=== PATIENT | female | born 1960 | race Caucasian/White ===

== ENCOUNTER 2018-10-22 23:00 | Observation (INO) ==
--- NOTE | 2018-10-22 23:35 | Emergency Department Note ---
Disposition Clinical Impression: Bradycardia, Lightheaded Disposition: Admitted As Inpatient Condition: Fair Referrals: Feliz Bolivar DO [Primary Care Provider] - Forms: ED Satisfaction Letter General Adult HPI - General Chief complaint: ED Shortness of Breath/Dyspnea Stated complaint: dizziness/low heart rate Time Seen by Provider: 10/22/18 23:10 Source: patient Limitations: no limitations Nursing Notes Reviewed: Yes Vital Signs Reviewed: Yes - History of Present Illness HPI Narrative: Patient is a 58-year-old female with past medical history including hypertension, takotsubo cardiomyopathy, presenting with chief complaint of lightheadedness and low heart rate. The patient states she was recently diagnosed with a sliding hiatal hernia a couple of weeks ago. She is scheduled for surgery with a cardiothoracic surgeon in [place]. She states she needs cardiac clearance prior. Since yesterday, the patient complains of intermittent episodes of lightheadedness when she stands up and ambulates. She denies chest pain with these episodes. Today she states the episodes have been happening more frequently and intermittently at rest. She also complains of associated shortness of breath. Decreased appetite today. She checked her blood pressure which was elevated and not uncommon for her. However she states her heart rate was in the 30s. She states this has never happened before. She takes metoprolol for many years and has not had any dosage changes. She is presenting here for further evaluation. Pain Scale: 4 - Related Data Home Medications Medication Instructions Recorded Confirmed CloNIDine Patch [Catapres-Tts] 0.2 mg TD QWEEK 07/14/15 07/14/15 Duloxetine HCl [Cymbalta] 60 mg PO DAILY 07/14/15 07/14/15 Lisinopril [Zestril] 20 mg PO BID 07/14/15 07/14/15 Morphine Sulfate ER (24 HR) 60 mg PO TID 07/14/15 07/14/15 [Morphine Sulfate ER Caps] Oxycodone HCl/Acetaminophen 1 tab PO Q6H PRN 07/14/15 07/14/15 [Percocet 10-325 mg Tablet] Quetiapine Fumarate [Seroquel] 125 mg PO HS 07/14/15 07/14/15 Tizanidine HCl 4 mg PO BID 07/14/15 07/14/15 cloNIDine HCl [CloNIDine HCl] 0.1 mg PO BID PRN 07/14/15 07/14/15 Previous Rx's Medication Instructions Recorded Aspirin 81 mg PO DAILY #30 tab.chew 07/15/15 Metoprolol XL (24 HR) Succ [Toprol 50 mg PO DAILY #30 tab.er.24h 07/15/15 Xl] Allergies Allergy/AdvReac Type Severity Reaction Status Date / Time meloxicam [From Mobic] Allergy Difficulty Verified 03/06/16 21:20 Breathing promethazine [From Phenergan] Allergy Muscle Pain Verified 03/06/16 21:20 Past Medical History - Past Medical History Medical history: Reports: arthritis, diabetes, fibromyalgia, GERD, hypertension Surgical history: Reports: other (left knee arthroscopy 2010, rotator cuff repair 2005, carpal tunnel release , d and c , tubal ligation 1998, liver laceration and repair 1985, uterine ablation 2011, anterior and posterior colporrhaphy with fascial graft 2011) Psychiatric history: Reports: no psych history [employer] history: Reports: other - Social History Smoking Status: Never smoker Smokeless Tobacco Status: No Alcohol use: Reports: none Drug use: Reports: none Physical Exam - General Limitations: no limitations General appearance: alert, in no apparent distress - Head Head exam: atraumatic, normocephalic, normal inspection - Eye Eye exam: Present: normal appearance, PERRL, EOMI - ENT ENT exam: normal exam, mucous membranes moist - Neck Neck exam: Present: normal inspection, trachea midline - Chest Chest inspection: Present: normal inspection, symmetric chest wall rise - Respiratory Respiratory exam: Present: normal lung sounds bilaterally. Absent: respiratory distress, wheezes - Cardiovascular Cardiovascular exam: Present: normal rhythm, bradycardia, other (bilateral radial pulses equal) - Abdominal Exam Abdominal exam: Present: soft, Non-Tender. Absent: distention - Extremities Exam Extremities exam: Present: normal inspection, normal capillary refill. Absent: calf tenderness - Neurological Exam Neurological exam: Present: alert, oriented X3, CN II-XII intact - Psychiatric Psychiatric exam: Present: normal affect, normal mood - Skin Skin exam: Present: warm, dry, intact. Absent: diaphoresis, pallor Course Vital Signs Temperature 97.8 F 10/22/18 23:09 Pulse Rate 47 10/22/18 23:09 Respiratory Rate 15 10/22/18 23:09 Blood Pressure 161/92 10/22/18 23:09 O2 Sat by Pulse Oximetry 99 10/22/18 23:09 Temperature 97.8 F 10/22/18 23:09 Pulse Rate 52 10/23/18 00:17 Respiratory Rate 18 10/23/18 00:17 Blood Pressure 170/92 10/23/18 00:17 O2 Sat by Pulse Oximetry 99 10/23/18 00:17 Oxygen Delivery Oxygen Delivery Room Air Medical Decision Making - MDM Narrative Medical decision making narrative: EKG shows borderline first-degree AV block. Heart rate was 47. Upon evaluation, heart rate is mid 50s. H&H is asymptomatic at rest. I did have the patient stand and ambulate and she states she still feels lightheaded however it is not as bad as before. We will obtain CBC, BMP, magnesium, troponin, TSH. Anticipate admission. Patient is on a beta anshu however has not had any changes and has been on metoprolol for years. Anticipate the patient will be admitted for observation overnight on cardiac monitoring. 0030 Dr. Alexander, hospitalist was notified of admission. Magnesium and electrolytes are normal. Troponin <0.03. TSH is pending. Patient is asymptomatic at rest and heart rate remains in the 50's. - Medical Records Medical records reviewed: Yes I reviewed the patient's medical records. - Lab Data Lab results reviewed: Yes I reviewed the patient's lab results. Result diagrams: 10/22/18 23:35 Lab Results 10/22/18 Range/Units 23:35 Sodium 136 (136-145) mEq/L Potassium 4.0 (3.5-5.1) mEq/L Chloride 104 (98-107) mEq/L Carbon Dioxide 24 (23-29) mEq/L BUN 17 (6-20) mg/dL Creatinine 0.94 (0.60-1.20) mg/dL Est GFR ( Amer) > 60 (> 60) Est GFR (Non-Af Amer) > 60 (> 60) BUN/Creatinine Ratio 18 (6-26) Glucose 128 H (70-105) mg/dL Calculated Osmolality 285 (280-300) Calcium 9.1 (8.6-10.3) mg/dL Magnesium 1.8 (1.6-2.6) mg/dL Troponin I < 0.03 (< 0.04) ng/mL - Radiology Data Radiology results reviewed: Yes I reviewed the patient's radiology results. Chest X-Ray 10/23/18 00:02 IMPRESSION: No acute cardiopulmonary disease. There is a band of right basilar chronic atelectasis/fibrosis. Moderate-sized hiatal hernia. D/ / Shin Corona MD / Shin Corona MD Interpreting Provider: Shin Corona MD - EKG Data EKG #1 EKG attestation: Yes I reviewed and interpreted this EKG. EKG results narrative: EKG obtained at 2308 shows sinus bradycardia with heart rate 47. MA interval 206, QRS duration 103, QTC 400. No ST elevation or depression. Compared to old EKG which at that time shows sinus rhythm on 03/06/2016.
--- NOTE | 2018-10-23 00:27 | Emergency Department Note ---
Disposition Clinical Impression: Bradycardia Disposition: Admitted As Inpatient Condition: Fair Forms: ED Satisfaction Letter General Adult HPI - General Chief complaint: ED Shortness of Breath/Dyspnea Stated complaint: dizziness/low heart rate Time Seen by Provider: 10/22/18 23:10 Source: patient Limitations: no limitations - History of Present Illness Pain Scale: 0 - Related Data Home Medications Medication Instructions Recorded Confirmed CloNIDine Patch [Catapres-Tts] 0.2 mg TD QWEEK 07/14/15 07/14/15 Duloxetine HCl [Cymbalta] 60 mg PO DAILY 07/14/15 07/14/15 Lisinopril [Zestril] 20 mg PO BID 07/14/15 07/14/15 Morphine Sulfate ER (24 HR) 60 mg PO TID 07/14/15 07/14/15 [Morphine Sulfate ER Caps] Oxycodone HCl/Acetaminophen 1 tab PO Q6H PRN 07/14/15 07/14/15 [Percocet 10-325 mg Tablet] Quetiapine Fumarate [Seroquel] 125 mg PO HS 07/14/15 07/14/15 Tizanidine HCl 4 mg PO BID 07/14/15 07/14/15 cloNIDine HCl [CloNIDine HCl] 0.1 mg PO BID PRN 07/14/15 07/14/15 Previous Rx's Medication Instructions Recorded Aspirin 81 mg PO DAILY #30 tab.chew 07/15/15 Metoprolol XL (24 HR) Succ [Toprol 50 mg PO DAILY #30 tab.er.24h 07/15/15 Xl] Allergies Allergy/AdvReac Type Severity Reaction Status Date / Time meloxicam [From Mobic] Allergy Difficulty Verified 03/06/16 21:20 Breathing promethazine [From Phenergan] Allergy Muscle Pain Verified 03/06/16 21:20 Past Medical History - Past Medical History Medical history: Reports: arthritis, diabetes, fibromyalgia, GERD, hypertension Surgical history: Reports: other (left knee arthroscopy 2010, rotator cuff repair 2005, carpal tunnel release , d and c , tubal ligation 1998, liver laceration and repair 1985, uterine ablation 2011, anterior and posterior colporrhaphy with fascial graft 2011) Psychiatric history: Reports: no psych history 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 - Social History Smoking Status: Never smoker Smokeless Tobacco Status: No Alcohol use: Reports: none Drug use: Reports: none Physical Exam - General Limitations: no limitations General appearance: alert, in no apparent distress Course Vital Signs Temperature 97.8 F 10/22/18 23:09 Pulse Rate 47 10/22/18 23:09 Respiratory Rate 15 10/22/18 23:09 Blood Pressure 161/92 10/22/18 23:09 O2 Sat by Pulse Oximetry 99 10/22/18 23:09 Temperature 97.8 F 10/22/18 23:09 Pulse Rate 52 10/23/18 00:17 Respiratory Rate 18 10/23/18 00:17 Blood Pressure 170/92 10/23/18 00:17 O2 Sat by Pulse Oximetry 99 10/23/18 00:17 Oxygen Delivery Oxygen Delivery Room Air Attestation Statement - Attestation Attestation: I examined this patient and my medical decision-making was reviewed with the Resident Physician. I agree with the documented findings, disposition and treatment plan as described except to the extent set forth below. Patient had an episode of shortness of breath, lightheadedness and dizziness while she was watching television. 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 He was not syncopal or presyncopal. Presents emergency Department with a heart rate in the 50s and a similar blood pressure. EKG shows a borderline first-degree AV block with a MA interval just over 200 ms, otherwise unremarkable. She is on a beta anshu, has not had any recent dosage changes. Is making a normal amount of urine. Labs have been ordered. Pending at the time of dictation. I will call the hospitalist to arrange for overnight observation.
[2018-10-23 00:37] LABS: BUN/Creatinine Ratio 18 (6-26); Blood Urea Nitrogen 17 mg/dL (6-20); Calcium 9.1 mg/dL (8.6-10.3); Carbon Dioxide 24 mEq/L (23-29); Chloride 104 mEq/L (98-107); Glucose 128 mg/dL (70-105); Magnesium 1.8 mg/dL (1.6-2.6); Osmolality,Calculated 285 (280-300); Sodium 136 mEq/L (136-145); eGFR For Non-African Americans > 60 (> 60)
[2018-10-23 00:38] LABS: Troponin I < 0.03 ng/mL (< 0.04)
[2018-10-23 00:51] LABS: Thyroid Stimulating Hormone 2.846 mcIU/mL (0.340-5.600)
[2018-10-23] MEDS ORDERED: *HR* LORazepam 2 MG/ML VIAL IVP STA (02:55)
[2018-10-23] MEDS ORDERED: *HR* HYDROcodone/Acet 5/325 mg TABLET PO PRN (03:52)
[2018-10-23] MEDS ORDERED: Naloxone 0.4 MG/ML INJ IVP PRN (03:52)
[2018-10-23] MEDS ORDERED: *HR* Dextrose 50 % in Water (Syg) 50 ML SYRINGE IVP PRN (03:58)
[2018-10-23] MEDS ORDERED: D5% in Water 1,000 ML IVC PRN (03:58)
[2018-10-23] MEDS ORDERED: Dextrose Gel 15 GM/37.5 ML TUBE PO PRN ×2 (03:58)
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
[2018-10-23 05:37] LABS: Basophils # 0.1 K/mcL (0.0-0.2); Basophils % 0.8 %; Eosinophils # 0.1 K/mcL (0.0-0.6); Eosinophils % 1.5 %; Hematocrit 34.8 % (35.3-44.9); Hemoglobin 10.7 g/dL (11.5-15.4); Immature Granulocytes % 0.5 % (0-4); Lymphocytes % 21.4 %; Mean Corpuscular HGB Conc 30.7 g/dL (31.6-35.5); Mean Corpuscular Hemoglobin 23.5 pg (28.0-33.3); Mean Corpuscular Volume 76.3 fL (83.0-100.0); Mean Platelet Volume 10.4 fL (9.4-12.4); Monocytes # 0.7 K/mcL (0.0-1.3); Monocytes % 7.4 %; Neutrophils # 6.3 K/mcL (1.6-8.9); Platelet Count 269 K/mcL (140-400); Red Blood Count 4.56 M/mcL (3.82-4.97); Red Cell Distribution Width 15.9 % (11.5-14.5); Segmented Neutrophils % 68.4 %
[2018-10-23 05:51] LABS: BUN/Creatinine Ratio 16 (6-26); Blood Urea Nitrogen 14 mg/dL (6-20); Calcium 9.5 mg/dL (8.6-10.3); Carbon Dioxide 25 mEq/L (23-29); Chloride 107 mEq/L (98-107); Glucose 110 mg/dL (70-105); Osmolality,Calculated 287 (280-300); Potassium 3.9 mEq/L (3.5-5.1); Sodium 138 mEq/L (136-145); eGFR For Non-African Americans > 60 (> 60)
[2018-10-23] MEDS: Insulin LISPRO 300 UNITS/3 ML VIAL SQ SCH ×3 (05:58→17:05)
[2018-10-23] MEDS ORDERED: Pantoprazole 40 MG VIAL IVP SCH (06:30)
[2018-10-23] MEDS ORDERED: Lisinopril 20 MG TABLET PO PRN (08:00)
--- NOTE | 2018-10-23 08:38 | Event Note ---
Date of Encounter: 10/23/18 Time of Encounter: 08:35 INTERVAL HISTORY Ms. Lewis is a 58-year old female with a history of hypertension, takotsubo cardiomyopathy, and sliding hiatal hernia who was admitted to the hospital for management of symptomatic bradycardia with increased shortness of breath. At the time of evaluation is afternoon, patient reports that her symptoms have resolved, and improved quickly once her blood pressure was back under control. Patient also reports improvement in her nausea, and states that she is hungry at this time. She did have significant anxiety this morning, which was alleviated by hydroxyzine 25 mg. Patient voiced interest in continuing this medication PRN for alleviation of both nausea and anxiety. She denies any other complaints or concerns at this time. PHYSICAL EXAM GENERAL: Well-developed, well-nourished adult female in no acute distress. She is resting comfortably in bed and appears to be a reliable historian. HEENT: Atraumatic and normocephalic. CARDIOVASCULAR: Regular rate and rhythm. S1 and S2 present. No murmurs, gallops, or rubs. RESPIRATORY: Clear to auscultation bilaterally. Chest rises and falls symmetrically without accessory muscle use. GASTROINTESTINAL: Abdomen is soft, nontender, nondistended. EXTREMITIES: No clubbing, cyanosis, or edema. SKIN: Warm, dry, and intact. NEUROLOGIC: Alert and oriented x3. Patient is cooperative with exam and answers questions appropriately. No apparent focal deficits. PSYCHIATRIC: Appropriate mood and affect. ASSESSMENT AND PLAN (1) Symptomatic bradycardia Likely secondary to home medication of metoprolol. Prior to ED arrival, patient reportedly had heart rate of 35. Initial recorded heart rate is noted to be low at 47 bpm, the patient has improved throughout the day, with most recent heart rate of 50 bpm. Echocardiogram demonstrated LVEF 60%, with moderate left ventricular diastolic dysfunction. Patient was also noted to have mild mitral regurgitation, as well as borderline mild pulmonary hypertension. - Stop home medication of metoprolol, as well as PRN clonidine. - Start amlodipine 5 mg daily. Change lisinopril to 20mg BID scheduled, rather than PRN. Continue home medication of hydrochlorothiazide 25mg daily. - Continue telemetry monitoring. Appreciate cardiology recommendations regarding management of this problem. (2) Hypertension At the time of admission, patient was noted to have elevated blood pressure of 161/92. Review of vital signs since that time shows worsening of blood pressure to a maximum of 193/85; however, patient's blood pressure has improved throughout the day, with most recent reading of 132/67. Patient denies any chest pain, shortness of breath, dizziness, lightheadedness, nausea, or vomiting at this time. - Continue current medication regimen including lisinopril 20mg BID, amlodipine 5mg, and hydrochlorothiazide 25mg daily. - Continue hydralazine 10mg IVP Q6H PRN. (3) Nausea and vomiting Patient reports resolution of nausea and vomiting that were present at the time of admission. She states that she normally has the symptoms associated with episodes of severe hypertension. She states that she takes Zofran at home; however, this was held secondary to prolonged QTC observed on initial EKG. Patient was administered 1 dose of hydroxyzine this morning, which did improve her nausea. - Continue hydroxyzine 25mg TID PRN. - Start full liquid diet and advance as tolerated by patient. (4) GERD History of gastroesophageal reflux disease, with home medication of omeprazole 40mg BID. - Continue protonix 40mg IVP BID. - Avoid NSAIDs. (5) Sliding hiatal hernia Patient reports recently diagnosed sliding hiatal hernia, with plan for operative management in the near future. - Plan as above for GERD. (6) Anxiety Patient reports history of anxiety. She states that this is normally fairly well controlled, which allowed her to discontinue taking benzodiazepines on a regular basis. Patient reports significant anxiety last night, which she attributes in part to how poorly she was feeling at the time. She did receive 1 dose of Ativan last night. She reports that the dose of hydroxyzine she received this morning did help significantly with her feelings of anxiety, and she states that she would like to continue this medication on a PRN basis. - Orders placed for hydroxyzine 25mg TID PRN. (7) Anemia Patient noted to be anemic, with hemoglobin of 10.7. Suspect that this is likely chronic, as review of previous laboratory results, though limited, shows similar hemoglobin levels. Patient states that she has not had workup for this problem in the past. - Continue monitoring trend daily CBC. - Laboratory studies pending, including iron profile and ferritin. (8) Diabetes mellitus History of type 2 diabetes mellitus, with home medication of metformin 500 mg BID. - ADA diet when tolerated by patient. - Accu-Cheks and low-dose corrective SSI Q6H. (9) DVT prophylaxis - Heparin 5000units SQ Q12H.
[2018-10-23] MEDS: amLODIPine 5 MG TABLET PO SCH (11:59)
[2018-10-23] MEDS: Lisinopril 20 MG TABLET PO SCH ×2 (12:00→22:32)
[2018-10-23] MEDS ORDERED: hydrOXYzine pamoate 25 MG CAPSULE PO PRN (13:43)
--- NOTE | 2018-10-23 13:45 | Cardiology Consult Note ---
<Le Velasco - Last Filed: 10/23/18 13:59> Date of Encounter: 10/23/18 Time of Encounter: 13:32 Assessment and Plan (1) Bradycardia Current Visit: Yes Status: Acute Presents after episode of bradycardia, reported to be 32-38 BMP at home. HR avg overnight was 69 BPM Suspect that this is secondary to how she is taking her medications and fluctuations in blood pressure- she takes metoprolol daily, lisinopril when she feels like her blood pressure is elevated and clonidine as a further backup. Metoprolol has been held and HR has improved- she is no longer feeling lightheaded, she denies chest pain, syncope, continued shortness of breath Will hold metoprolol until further evaluation by her outpatient PCP Will continue lisinopril 20 mg BID scheduled, amlodipine 5 mg qd and HCTZ 25 mg qd (2) Hypertension Current Visit: No Status: Chronic Patient has a history of uncontrolled, fluctuating HTN Takes metoprolol daily, lisinopril PRN and clondine PRN as backup Suspect that her medication schedule is causing reflex tachy and bradycardia and labile blood pressures Will hold metoprolol Will discontinue clonidine Continue amlodipine, lisinopril and HCTZ as scheduled, daily medications Continue to monitor Qualifiers: Hypertension type: essential hypertension Qualified Code(s): I10 - Essential (primary) hypertension (3) Diabetes mellitus Current Visit: Yes Status: Acute History of DM type 2 Continue sliding scale insulin Should be taking lisinopril daily instead of PRN for renal protection as well as HTN management Qualifiers: Diabetes mellitus type: type 2 Diabetes mellitus complication status: without complication Qualified Code(s): E11.9 - Type 2 diabetes mellitus without complications (4) Sliding hiatal hernia Current Visit: Yes Status: Acute History of hiatal hernia Surgical management planned outpatient (5) GERD (gastroesophageal reflux disease) Current Visit: No Status: Chronic History of GERD Continue protonix Qualifiers: Esophagitis presence: esophagitis presence not specified Qualified Code(s): K21.9 - Gastro-esophageal reflux disease without esophagitis (6) DVT prophylaxis Current Visit: No Status: Acute SCDs Discussion w patient/family: The assessment and plan as outlined above was discussed with the patient and/or family members who expressed understanding and agreement. All questions were answered. Thank you for involving us in the care of your patient. Please call with any questions. History of Present Illness Consult date: 10/23/18 Consult reason: Bradycardia Chief complaint: Bradycardia History of present illness: Ms. Lewis is a 58 year old female presenting with bradycardia and dyspnea. PMH HTN, takotsubo cardiomyopathy 3 years ago with EF of 25%, DM type 2, GERD, sliding hiatal hernia with surgical management planned outpatient. She states that she has feeling a bit lightheaded 2 days ago, however it resolved. Yesterday she was sitting on her couch at rest when she began to feel lightheaded again, she took her BP and it was elevated to 180's/90's and checked her pulse which was 32-38 BPM. She states that she began to panic and became short of breath which resolved after she used her 's oxygen. She states that she has had a difficult time with fluctuating blood pressure. She states that she takes her metoprolol daily, uses lisinopril PRN as a "back up" and r lynette needs her clonidine as a back up. She admits to nausea and vomiting when her blood pressure is elevated, some shortness of breath during episode yesterday and occasional lightheadedness when she rises from a seated position. She denies syncope, vision or hearing changes, dysphagia, chest pain, palpitations, orthopnea, PND, claudication, shortness of breath, cough, wheezing, pleuritic pain, abdominal pain, diarrhea, constipation, melena, hematochezia, dysuria, hematuria, calf pain, edema. Past Med Surg Social Fam HX - Past Medical History Medical history: arthritis, diabetes, fibromyalgia, GERD, hypertension Psychiatric history: no psych history - Past Surgical History Surgical History: other (left knee arthroscopy 2010, rotator cuff repair 2005, carpal tunnel release , d and c , tubal ligation 1998, liver laceration and repair 1985, uterine ablation 2011, anterior and posterior colporrhaphy with fascial graft 2011) Additional surgical history: lacerated liver repair. left rotator cuff. bilat carpal tunnel. uterine ablation. knee scopes - Social History Smoking Status: Never smoker Smokeless Tobacco Status: No Alcohol use: rarely Drug use: none - Family History Mother Adopted: No Family Member Ethnicity: Non- Living Status: Still Living Hx Family Cardiac Disorders: Yes (HTN) Hx Family Respiratory Disorders: No Hx Family Cancer: No Hx Family GI Disorders: No Hx Family Endocrine Disorder: No Hx Family Musculoskeletal Disorders: Yes (Arthritis) Father Adopted: No Living Status: Cause of : P.E. Hx Family Cardiac Disorders: No Hx Family Cancer: No Hx Family Endocrine Disorder: No Medications and Allergies Lisinopril [Zestril] 20 mg PO BID PRN 07/14/15 [History] Oxycodone HCl/Acetaminophen [Percocet 10-325 mg Tablet] 1 tab PO Q6H PRN 07/14/15 [History] Quetiapine Fumarate [Seroquel] 125 mg PO HS 07/14/15 [History] Tizanidine HCl 12 mg PO TID 07/14/15 [History] cloNIDine HCl [CloNIDine HCl] 0.1 mg PO BID PRN 07/14/15 [History] Aspirin 81 mg PO DAILY #30 tab.chew 07/15/15 [Rx] Metoprolol XL (24 HR) Succ [Toprol Xl] 100 mg PO DAILY 10/23/18 [History] Omeprazole [PriLOSEC] 40 mg PO BID 10/23/18 [History] metFORMIN [Glucophage] 500 mg PO BIDWM 10/23/18 [History] Allergy/AdvReac Type Severity Reaction Status Date / Time meloxicam [From Mobic] Allergy Difficulty Verified 03/06/16 21:20 Breathing promethazine [From Phenergan] Allergy Muscle Pain Verified 03/06/16 21:20 All Systems Review: The remainder of the systems were reviewed and are negative - Constitutional Constitutional: no chills, no fever(s) - EENT Eyes: no loss of vision Nose, mouth and throat: no dysphagia - Cardiovascular Cardiovascular: lightheadedness, no chest pain at rest, no chest pain with ex ertion, no claudication, no dyspnea at rest, no dyspnea on exertion, no irregular heart rhythm, no leg edema, no orthopnea, no palpitations, no paroxysmal nocturnal dyspnea, no syncope - Respiratory Respiratory: no cough, no dyspnea - Gastrointestinal Gastrointestinal: nausea, no abdominal pain, no constipation, no hematochezia, no melena - Genitourinary Genitourinary: no dysuria, no hematuria - Musculoskeletal Musculoskeletal: no arthralgias, no myalgias - Integumentary Integumentary: no erythema - Neurological Neurological: dizziness, numbness, tingling, no focal weakness, no syncope - Psychiatric Psychiatric: no anxiety, no depression - Hematological/Lymphatic Hematologic/Lymphatic: no easy bleeding, no easy bruising Physical Examination Vital Signs, Last 4 Hours Temp Pulse BP Pulse Ox 10/23/18 11:20 97.9 F 58 122/83 99 10/23/18 09:34 166/75 General: Conversant, No Apparent Distress HEENT: Atraumatic, Normocephaly, Mucus Membranes Moist Neck: No JVD, Normal carotid pulses Cardiac: Reg Rate and Rhythm, Normal S1 and S2, No Murmur Lungs: Normal Breath Sounds, No Wheeze, Rales, Rhonchi Neuro: Alert and responsive, No focal deficits noted Abdomen: Soft, Non-Tender Skin: No rashes noted on visualized skin Musculoskeletal: No Chest Wall Tenderness Extremities: No Clubbing, No Cyanosis, No Edema, Normal Pulses Results 10/23/18 04:59 10/23/18 04:59 Lab Results 10/22/18 10/23/18 10/23/18 23:35 04:59 04:59 WBC 9.2 Hgb 10.7 L Hct 34.8 L Plt Count 269 Sodium 136 138 Potassium 4.0 3.9 Chloride 104 107 Carbon Dioxide 24 25 BUN 17 14 Creatinine 0.94 0.88 Glucose 128 H 110 H Calcium 9.1 9.5 Magnesium 1.8 Troponin I < 0.03 TSH 2.846 Consult Discharge Plan - Plan Referrals: Feliz Bolivar, [Primary Care Provider] - <Delicia Powers - Last Filed: 10/23/18 14:43> Date of Encounter: 10/23/18 - Attending Attestation Patient was seen and evaluated independently by me. Findings, assessment and p coleen were discussed at length with patient, questions answered. Agree with nurse practitioner's/resident's documentation. Addition as follows, 58yoCF ho Takotsubo CMP 2016 with recovered LVEF, uncontrolled HTN, DM2. P/w dizziness with home SBP 170s and HR 35. Symptoms resolved after admission with [facility] and holding BB. Tele HR 50s-70s. CTA, RR, no LE edema. ECG S francheska 47. TTE EF 60%, RV, mod DD, RV nl, mild MR, RVSP 35 borderline PH. Suboptimal home BP med regimen (metoprolol daily with florin prn and clonidine prn) A: Sinus francheska, etiology hypertension reflex response vs BB induced Hypertensive urgency Ho Takotsubo CMP 3 yrs ago P: ACEi, HCTZ, amlodipine hold BB for now, f/u Cardiology clinic Delicia Powers MD, PhD Assessment and Plan Discussion w patient/family: The assessment and plan as outlined above was discussed with the patient and/or family members who expressed understanding and agreement. All questions were answered. Thank you for involving us in the care of your patient. Please call with any questions. History of Present Illness History of present illness: Ms. Lewis is a 58 year old female All Systems Review: The remainder of the systems were reviewed and are negative Physical Examination Vital Signs, Last 4 Hours Temp Pulse BP Pulse Ox 10/23/18 11:20 97.9 F 58 122/83 99 Results 10/23/18 04:59 10/23/18 04:59 Lab Results 10/22/18 10/23/18 10/23/18 23:35 04:59 04:59 WBC 9.2 Hgb 10.7 L Hct 34.8 L Plt Count 269 Sodium 136 138 Potassium 4.0 3.9 Chloride 104 107 Carbon Dioxide 24 25 BUN 17 14 Creatinine 0.94 0.88 Glucose 128 H 110 H Calcium 9.1 9.5 Magnesium 1.8 Troponin I < 0.03 TSH 2.846
[2018-10-23] MEDS: *HR* Heparin 5,000 UNIT/ML VIAL SQ SCH (16:59)
[2018-10-23] MEDS: Pantoprazole 40 MG VIAL IVP SCH (17:01)
[2018-10-24] MEDS: Insulin LISPRO 300 UNITS/3 ML VIAL SQ SCH ×3 (00:27→12:13)
[2018-10-24 05:18] LABS: Basophils # 0.1 K/mcL (0.0-0.2); Basophils % 1.1 %; Eosinophils # 0.2 K/mcL (0.0-0.6); Eosinophils % 2.6 %; Hematocrit 34.3 % (35.3-44.9); Hemoglobin 10.3 g/dL (11.5-15.4); Immature Granulocytes % 0.5 % (0-4); Lymphocytes # 2.1 K/mcL (0.6-4.6); Lymphocytes % 32.6 %; Mean Corpuscular Hemoglobin 23.1 pg (28.0-33.3); Mean Corpuscular Volume 77.1 fL (83.0-100.0); Mean Platelet Volume 11.2 fL (9.4-12.4); Monocytes # 0.6 K/mcL (0.0-1.3); Neutrophils # 3.5 K/mcL (1.6-8.9); Platelet Count 272 K/mcL (140-400); Red Blood Count 4.45 M/mcL (3.82-4.97); Red Cell Distribution Width 16.3 % (11.5-14.5); Segmented Neutrophils % 54.2 %
[2018-10-24 05:33] LABS: BUN/Creatinine Ratio 12 (6-26); Blood Urea Nitrogen 13 mg/dL (6-20); Calcium 9.1 mg/dL (8.6-10.3); Carbon Dioxide 23 mEq/L (23-29); Chloride 107 mEq/L (98-107); Glucose 167 mg/dL (70-105); Osmolality,Calculated 292 (280-300); Potassium 3.4 mEq/L (3.5-5.1); Sodium 139 mEq/L (136-145); eGFR For Non-African Americans 53 (> 60)
[2018-10-24 05:39] LABS: % Iron Saturation 6 % (15-50); Iron 31 mcg/dL (50-170); Transferrin 362 mg/dL (203-362)
[2018-10-24 05:51] LABS: Ferritin < 8 ng/mL (10-120)
[2018-10-24] MEDS: *HR* Heparin 5,000 UNIT/ML VIAL SQ SCH (06:14)
[2018-10-24 06:40] VITALS: BP 122/71
[2018-10-24] MEDS: Pantoprazole 40 MG VIAL IVP SCH (08:48)
[2018-10-24] MEDS: Lisinopril 20 MG TABLET PO SCH (08:49)
[2018-10-24] MEDS: amLODIPine 5 MG TABLET PO SCH (08:49)
[2018-10-24] MEDS ORDERED: hydroCHLOROthiazide 25 MG TABLET PO SCH (09:00)
--- NOTE | 2018-10-24 11:57 | Discharge Summary ---
<Sissy Osborn N - Last Filed: 10/24/18 12:26> - NOTES TO OUTPATIENT PROVIDER Notes to Outpatient Provider: Patient was admitted for MsKeyshawn symptomatic bradycardia. Several medication adjustments were made during admission, and prior medications of hydrochlorothiazide, metoprolol, and clonidine were stopped. PRN lisinopril was discontinued; scheduled BID dosing started. Patient was also started on amlodipine 5 mg daily. Patient was noted to be anemic, with low iron profile; prescription for oral iron provided at time of discharge. Patient is to have repeat BMP in 1 week, with PCP follow-up for results and ongoing management. Date of Encounter: 10/24/18 Time of Encounter: 11:57 - Discharge Diagnosis (1) Hypertension Priority: Secondary Status: Chronic Qualifiers: Hypertension type: essential hypertension Qualified Code(s): I10 - Essential (primary) hypertension (2) GERD (gastroesophageal reflux disease) Priority: Secondary Status: Chronic Qualifiers: Esophagitis presence: esophagitis presence not specified Qualified Code(s): K21.9 - Gastro-esophageal reflux disease without esophagitis (3) Sliding hiatal hernia Priority: Secondary Status: Acute (4) Diabetes mellitus Priority: Secondary Status: Acute Qualifiers: Diabetes mellitus type: type 2 Diabetes mellitus complication status: without complication Qualified Code(s): E11.9 - Type 2 diabetes mellitus without complications (5) Symptomatic bradycardia Priority: Primary Status: Acute (6) Nausea & vomiting Priority: Secondary Status: Acute Qualifiers: Vomiting type: unspecified Vomiting Intractability: unspecified Qualified Code(s): R11.2 - Nausea with vomiting, unspecified (7) Anemia Priority: Secondary Status: Acute Qualifiers: Anemia type: unspecified type Qualified Code(s): D64.9 - Anemia, unspecified Hospital course: Ms. Lewis is a 58 year old female with a history of hypertension, takotsubo cradiomyopathy and recently diagnosed with sliding hernia who presented to the ED complaining of heart rate of 35 at home, shortness of breath, and lightheadedness during ambulation. Patient also voiced significant nausea, epigastric pain, and vomiting secondary to sliding hiatal hernia. Initial heart rate obtained in the ED was notably decreased at 47 bpm. Home medication of metoprolol was held and patient was put on continuous cardiac monitoring. Echocardiogram was performed, which demonstrated LVEF 60%, moderate left ventricular diastolic dysfunction, normal right ventricular structure and function, mild mitral regurgitation, and borderline mild pulmonary hypertension. Review of home medication regimen significant for regular use of metoprolol, with lisinopril and clonidine PRN for management of symptomatic hypertension. Per review of cardiology note, patient's uncontrolled, fluctuating hypertension is likely exacerbated by her regular medication schedule causing reflex tachycardia/bradycardia and labile blood pressures. Recommendations for medication adjustment were as follows: Continue lisinopril 20 mg BID, amlodipine 5 mg daily, and hydrochlorothiazide 25 mg daily; discontinue use of metoprolol and clonidine until further evaluation and follow-up with outpatient PCP. Patient did have resolution of shortness of breath, and lightheadedness once appropriate blood pressure was achieved. On day of discharge, patient's vital signs were reviewed, prompting discontinuation of hydrochlorothiazide due to intermittent borderline hypotension, with systolic pressure in the 90s. Patient was instructed to obtain daily blood pressure measurements every morning. She is also instructed to have repeat metabolic panel performed in 1 week. Initial laboratory workup did reveal anemia, with hemoglobin <11.0. Anemia panels were obtained, which showed low iron of 31, 6% saturation, normal transferrin, and ferritin <8.Patient was provided with prescription for oral iron supplementation. On day of discharge, patient reported complete resolution of symptoms, and voiced understanding of her new medication regimen. - Time Spent with Patient Total time spent providing and/or coordinating discharge services: - Discharge Medications Prescriptions: New Ferrous Sulfate 325 mg PO BIDWM #60 tablet amLODIPine [Norvasc] 5 mg PO DAILY #30 tablet Lisinopril [Zestril] 20 mg PO BID #60 tablet Continued Tizanidine HCl 12 mg PO TID Quetiapine Fumarate [Seroquel] 100 mg PO HS Aspirin 81 mg PO DAILY #30 tab.chew metFORMIN [Glucophage] 500 mg PO BIDWM Omeprazole [PriLOSEC] 40 mg PO BID Furosemide [Lasix] 40 mg PO DAILY PRN PRN Reason: Hypertension OxyCODONE/APAP 10/325 [Percocet 10/325 MG] 1 tab PO Q4H PRN PRN Reason: Pain Potassium Chloride [K-Tab ER] 20 meq PO DAILY PRN PRN Reason: Hypertension Discontinued Lisinopril [Zestril] 20 mg PO BID PRN PRN Reason: Hypertension cloNIDine HCl [CloNIDine HCl] 0.1 mg PO BID PRN PRN Reason: Hypertension Metoprolol XL (24 HR) Succ [Toprol Xl] 100 mg PO DAILY Home Medications: Quetiapine Fumarate [Seroquel] 100 mg PO HS 07/14/15 [History] Tizanidine HCl 12 mg PO TID 07/14/15 [History] Aspirin 81 mg PO DAILY #30 tab.chew 07/15/15 [Rx] Furosemide [Lasix] 40 mg PO DAILY PRN 10/23/18 [History] Omeprazole [PriLOSEC] 40 mg PO BID 10/23/18 [History] OxyCODONE/APAP 10/325 [Percocet 10/325 MG] 1 tab PO Q4H PRN 10/23/18 [History] Potassium Chloride [K-Tab ER] 20 meq PO DAILY PRN 10/23/18 [History] metFORMIN [Glucophage] 500 mg PO BIDWM 10/23/18 [History] Ferrous Sulfate 325 mg PO BIDWM #60 tablet 10/24/18 [Rx] Lisinopril [Zestril] 20 mg PO BID #60 tablet 10/24/18 [Rx] amLODIPine [Norvasc] 5 mg PO DAILY #30 tablet 10/24/18 [Rx] Allergies/Adverse Reactions: Allergy/AdvReac Type Severity Reaction Status Date / Time meloxicam [From Mobic] Allergy Difficulty Verified 10/23/18 18:07 Breathing promethazine [From Phenergan] Allergy Muscle Pain Verified 10/23/18 18:07 Date of admission: 10/23/18 00:55 Primary care physician: Feliz Bolivar Consults: 10/23/18 03:56 Consult to Cardiology [CONS] Routine Comment: Consulting Provider: [facility] Reason for Consult: symptomatic bradycardia, no new changes to medications Call Completed: No Discharging clinician: Sissy Osborn Anticipated date of discharge: 10/24/18 - Constitutional Vitals: Temp Pulse Resp BP Pulse Ox 98.1 F 56 16 122/71 96 10/24/18 06:39 10/24/18 06:39 10/24/18 06:39 10/24/18 06:39 10/24/18 06:39 Exam: GENERAL: Well-developed, well-nourished adult female lying in bed in no acute distress. HEENT: Atraumatic and normocephalic. CARDIOVASCULAR: Regular rate and rhythm. S1 and S2 present. No murmurs, gallops, or rubs. RESPIRATORY: Clear to auscultation bilaterally. Chest rises and falls symmetrically without accessory muscle use. GASTROINTESTINAL: Abdomen is soft, nontender, nondistended. EXTREMITIES: No clubbing, cyanosis, or edema. SKIN: Warm, dry, and intact. NEUROLOGIC: Alert and oriented x3. Patient is cooperative with exam and answers questions appropriately. No apparent focal deficits. PSYCHIATRIC: Appropriate mood and affect. - Patient Status Disposition: Home, Self-Care Condition: Fair Functional capacity at discharge: independent ambulation Overall status at discharge: patient is progressing back to baseline - Ambulatory Orders Ambulatory Orders: Basic Metabolic Panel [CHEM] Time Frame: 1 Week, Location: Determined By Patient - Discharge Instructions Instructions: Iron Supplements (By mouth), Lisinopril (By mouth), Amlodipine (By mouth), Vertigo (DC), Bradycardia (DC) Follow Up With: [facility] [Provider Group] (Office will call with date and time of appointment. ) Feliz Bolivar DO [Primary Care Provider] - (call and make a follow up appointment due to the office being closed for the weekend. Recommend follow-up within 1 week.) Additional Instructions: Follow up with her primary care provider in 3-5 days for reevaluation. Follow up with outpatient cardiology clinic as scheduled. Several medication changes were made during your hospital admission. - Stop taking metoprolol, hydrochlorothiazide, and clonidine. - Stop taking lisinopril PRN; instead, continue taking 20mg twice a day. - Take the following new medications: amlodipine 5mg daily and ferrous sulfate 325mg twice a day with meals. - Continue taking your remaining home medications as previously directed. Check your blood pressure at home every morning. Have repeat metabolic panel drawn in 1 week. Return to the emergency department if you have recurrent bradycardia, dizziness, lightheadedness, syncope, chest pain, shortness of breath, palpitations, or if any new concerns arise. - Diet and Activity Activity: increase activity as tolerated Diet: diabetic diet <Miguelito Gonzalez - Last Filed: 10/24/18 13:37> Date of Encounter: 10/24/18 Time of Encounter: 09:15 - Discharge Diagnosis (1) Hypertension Status: Chronic Qualifiers: Hypertension type: essential hypertension Qualified Code(s): I10 - Essential (primary) hypertension (2) GERD (gastroesophageal reflux disease) Status: Chronic Qualifiers: Esophagitis presence: esophagitis presence not specified Qualified Code(s): K21.9 - Gastro-esophageal reflux disease without esophagitis (3) Sliding hiatal hernia Status: Acute (4) Diabetes mellitus Status: Acute Qualifiers: Diabetes mellitus type: type 2 Diabetes mellitus complication status: without complication Qualified Code(s): E11.9 - Type 2 diabetes mellitus without complications (5) Symptomatic bradycardia Status: Acute (6) Nausea & vomiting Status: Acute Qualifiers: Vomiting type: unspecified Vomiting Intractability: unspecified Qualified Code(s): R11.2 - Nausea with vomiting, unspecified (7) Anemia Status: Acute Qualifiers: Anemia type: unspecified type Qualified Code(s): D64.9 - Anemia, unspecified Hospital course: Ms. Lewis is a 58 year old female - Time Spent with Patient Total time spent providing and/or coordinating discharge services: Date of admission: 10/23/18 00:55 Primary care physician: Feliz Bolivar Consults: 10/23/18 03:56 Consult to Cardiology [CONS] Routine Comment: Consulting Provider: [facility] Reason for Consult: symptomatic bradycardia, no new changes to medications Call Completed: No - Constitutional Vitals: Temp Pulse Resp BP Pulse Ox 98.1 F 56 16 122/71 96 10/24/18 06:39 10/24/18 06:39 10/24/18 06:39 10/24/18 06:39 10/24/18 06:39 - Attending Attestation I saw evaluated and examined this patient and my medical decision-making was reviewed with the Resident Physician, Sissy Osborn. I agree with the documented findings, disposition and treatment plan as described except to any changes set forth below. We independently had [id number] contact with the patient. Patient with history of diabetes, hypertension, was hospitalized here with bradycardia. Patient takes 100 mg of Toprol-XL daily. She was monitored in the hospital and her EKG showed sinus bradycardia. We held her metoprolol. Her heart rate slowly improved. Currently, heart rate is maintaining in the high 50s to 60s. Recommend to stop Toprol at this time. 2-D echocardiogram done showed EF of 60% with moderate left ventricular diastolic dysfunction. Patient was evaluated by cardiology. They recommended to hold metoprolol and to follow up as outpatient. Patient did have a hypertensive urgency and was placed on amlodipine and lisinopril along with hydrochlorothiazide. Her blood pressure has improved. She did develop slight hypokalemia. As such we will continue amlodipine and lisinopril. Stop hydrochlorothiazide for now. Follow-up outpatient with PCP and cardiology. On exam, patient is awake and alert. S1 and S2 are normal. Abdomen is soft, nontender. Breath sounds are normal.
--- NOTE | 2018-10-28 21:56 | Electrocardiograph Report ---
[address] [address] Test Date: 2018-10-22 Pat Name: Cari Lewis Department: EXAM6 Room: 3B22 Gender: F Latent Fingerprint Examiner: : 1960 Requested By: Shen Lloyd Order Number: [id number] Reading MD: Le Basilio Measurements Intervals [place] Rate: 47 P: 14 SD: 206 QRS: 75 QRSD: 103 T: 44 QT: 452 QTc: 400 Interpretive Statements Sinus bradycardia Electronically Signed On 10-28-2018 21:54:48 EDT by Le Basilio
== END 2018-10-24 13:20 | disposition home or self-care (01) ==
LOC: EMEROOARM 23:00 → 3BNU 23:00 → SUATTDRO 10-23 00:55 → 3BNU 10-23 01:22
PROVIDERS: ADMIT Pediatrics; ATTEND Internal Medicine

== ENCOUNTER 2021-01-05 00:04 | Inpatient (IN) ==
[2021-01-05] MEDS ORDERED: Ondansetron 4 MG/2 ML VIAL IVP PRN (04:42)
[2021-01-05] MEDS ORDERED: Acetaminophen 325 MG TABLET PO PRN (04:42)
[2021-01-05] MEDS ORDERED: Naloxone 0.4 MG/ML INJ IVP PRN (04:42)
[2021-01-05 05:36] LABS: Potassium,Urine 8.2 mEq/L; Sodium, Urine 73.9 mEq/L
[2021-01-05 05:43] LABS: Bacteria,Urine Few per hpf (None-Few); Bilirubin,Urine Negative (Negative); Blood,Urine Moderate (Negative); Clarity,Urine Clear (Clear); Color,Urine Colorless (Yellow); Glucose,Urine (UA) 500 mg/dL (Normal); Ketones,Urine Negative (Negative); Leukocyte Esterase,Urine Negative (Negative); Mucus,Urine Few per lpf (None-Few); Nitrite,Urine Negative (Negative); Protein,Urine Trace mg/dL (Neg-Trace); Specific Gravity,Urine 1.014 (1.010-1.025); Squamous Epithelial Cell,Urine Few per hpf (None-Few); Urobilinogen,Urine Normal (Normal)
[2021-01-05 06:10] LABS: Basophils # 0.1 K/mcL (0.0-0.2); Basophils % 1.1 %; Eosinophils # 0.1 K/mcL (0.0-0.6); Eosinophils % 0.6 %; Hematocrit 34.1 % (35.3-44.9); Hemoglobin 10.4 g/dL (11.5-15.4); Immature Granulocytes % 0.8 % (0-4); Lymphocytes # 1.9 K/mcL (0.6-4.6); Lymphocytes % 17.2 %; Mean Corpuscular HGB Conc 30.5 g/dL (31.6-35.5); Mean Corpuscular Hemoglobin 25.5 pg (28.0-33.3); Mean Corpuscular Volume 83.6 fL (83.0-100.0); Mean Platelet Volume 10.8 fL (9.4-12.4); Monocytes # 1.1 K/mcL (0.0-1.3); Monocytes % 9.9 %; Neutrophils # 7.6 K/mcL (1.6-8.9); Platelet Count 304 K/mcL (140-400); Red Blood Count 4.08 M/mcL (3.82-4.97); Segmented Neutrophils % 70.4 %; White Blood Count 10.8 K/mcL (4.3-11.1)
[2021-01-05 06:17] LABS: INR 1.3; Prothrombin Time 14.9 Seconds (9.4-12.1)
[2021-01-05 06:25] LABS: VBG HCO3 19 mEq/L (21-27); VBG PCO2 39 mmHg (41-51); VBG PO2 149 mmHg (25-50)
[2021-01-05] MEDS ORDERED: D5% in Water 1,000 ML IVC PRN (06:37)
[2021-01-05] MEDS ORDERED: Dextrose Gel 15 GM/37.5 ML TUBE PO PRN ×2 (06:37)
[2021-01-05] MEDS ORDERED: *HR* Dextrose 50 % in Water (Vial) 50 ML VIAL IVP PRN (06:37)
[2021-01-05 07:05] LABS: Alanine Aminotransferase 24 Units/L (7-52); Albumin 4.1 g/dL (3.5-5.7); Albumin/Globulin Ratio 1.2 (1.1-2.2); Alkaline Phosphatase 142 Units/L (34-104); Aspartate Amino Transferase 16 Units/L (13-39); BUN/Creatinine Ratio 20 (6-26); Bilirubin,Total 0.4 mg/dL (0.3-1.0); Blood Urea Nitrogen 74 mg/dL (8-23); Calcium 9.2 mg/dL (8.6-10.3); Carbon Dioxide 18 mEq/L (23-29); Chloride 108 mEq/L (98-107); Chol/HDL Ratio 7.6 (0-4.9); Cholesterol 190 mg/dL (< 200); Globulin 3.4 g/dL (2.4-3.5); Glucose 190 mg/dL (70-105); HDL Cholesterol 25 mg/dL (40-59); LDL Cholesterol,Calculated 103 mg/dL (< 100); Magnesium 1.7 mg/dL (1.6-2.6); Osmolality,Calculated 311 (280-300); Phosphorous 3.4 mg/dL (2.7-4.5); Potassium 4.8 mEq/L (3.5-5.1); Sodium 137 mEq/L (136-145); Total Protein 7.5 g/dL (6.4-8.9); Triglycerides 312 mg/dL (< 150); eGFR For African Americans 15 (> 60); eGFR For Non-African Americans 13 (> 60)
[2021-01-05 07:27] LABS: Troponin I < 0.03 ng/mL (< 0.04)
[2021-01-05] MEDS: Insulin LISPRO 300 UNITS/3 ML VIAL SUBQ SCH ×3 (07:39→16:27)
[2021-01-05] MEDS: 0.9 % Sodium Chloride 1,000 ML IVC SCH ×3 (09:11→23:27)
[2021-01-05 11:58] LABS: Estimated Average Glucose 263 mg/dl; Hemoglobin A1C 10.8 %
[2021-01-05 12:13] LABS: Hepatitis B Surface Antigen Nonreactive (Nonreactive)
[2021-01-05 12:42] LABS: Hepatitis C Virus Antibody Nonreactive (Nonreactive)
[2021-01-05 12:43] LABS: Hepatitis B Core IgM Nonreactive (Nonreactive)
[2021-01-05 12:44] LABS: Hepatitis A Antibody IgM Nonreactive (Nonreactive)
[2021-01-05] MEDS: Doxycycline 100 MG CAPSULE PO SCH ×2 (12:49→20:14)
[2021-01-05 13:30] LABS: Complement C3 175 mg/dL (87-200)
[2021-01-05 13:32] LABS: Lyme Disease Total Antibody Negative (Negative)
[2021-01-05] MEDS: *HR* OxyCODONE/APAP 10/325 TABLET PO PRN ×2 (14:44→20:18)
[2021-01-05] MEDS ORDERED: cloNIDine HCL 0.1 MG TABLET PO PRN (17:24)
[2021-01-05] MEDS ORDERED: QUEtiapine Fumarate 100 MG TABLET PO SCH (21:00)
[2021-01-06 03:26] LABS: Hematocrit 31.8 % (35.3-44.9); Mean Corpuscular HGB Conc 31.4 g/dL (31.6-35.5); Mean Corpuscular Hemoglobin 26.1 pg (28.0-33.3); Mean Platelet Volume 10.6 fL (9.4-12.4); Platelet Count 229 K/mcL (140-400); Red Blood Count 3.83 M/mcL (3.82-4.97); Red Cell Distribution Width 17.2 % (11.5-14.5); White Blood Count 6.2 K/mcL (4.3-11.1)
[2021-01-06 03:48] LABS: Potassium 4.7 mEq/L (3.5-5.1)
[2021-01-06] MEDS: *HR* OxyCODONE/APAP 10/325 TABLET PO PRN ×2 (04:48→09:31)
[2021-01-06] MEDS: Doxycycline 100 MG CAPSULE PO SCH (07:44)
[2021-01-06] MEDS: Insulin LISPRO 300 UNITS/3 ML VIAL SUBQ SCH ×2 (07:44→11:59)
[2021-01-06] MEDS ORDERED: Metoprolol XL (24 HR) Succ 50 MG TAB.ER.24H PO SCH (09:00)
[2021-01-06] MEDS ORDERED: *HR* LORazepam 2 MG/ML VIAL IVP ONE (10:33)
[2021-01-06 11:24] VITALS: BP 148/76; PULSE 78; TEMP 98.7; O2SAT 98
[2021-01-06] MEDS ORDERED: *HR* LORazepam 1 MG TABLET PO ONE (13:22)
[2021-01-07 16:02] LABS: ANA IgG by ELISA NONE DETECTED (None Detected); Serine Protease-3 Antibody 1 AU/mL (0-19)
[2021-01-19 11:00] LABS: Anti-IgA Ab <99 U/mL (<99)
== END 2021-01-06 16:34 | disposition home or self-care (01) | DRG 683 ==
LOC: 2NNU → SUATTDRO 04:54 → 3ANU 01-06 11:37
PROVIDERS: ADMIT Internal Medicine; ATTEND Student in an Organized Health Care Education/Training Program